=== PATIENT | female | born 1960 | race Hispanic/Latino ===

== ENCOUNTER → 2017-12-15 | Outpatient (CLI) | payer BC | END | disposition home or self-care (01) | LOC: RAH 14:55 | PROVIDERS: ATTEND Internal Medicine | DX: Z12.31 Encounter for screening mammogram for malignant neoplasm of breast (principal) | CPT/HCPCS: 77067 ==

== ENCOUNTER 2018-11-14 14:30 | Emergency (ER) | payer BC ==
[2018-11-14] MEDS ORDERED: LIDOCAINE HCL 2% VISCOUS 15 ML UDCUP ONE (15:59)
== END 2018-11-14 17:10 | disposition home or self-care (01) ==
LOC: EDH 14:30
DX: K08.89 Other specified disorders of teeth and supporting structures (principal); R51 Headache